=== PATIENT | female | born 1995 | race Hispanic/Latino ===

== ENCOUNTER 2019-10-17 13:47 | Emergency (ER) | payer SELFPAY ==
[~2019-10-17] VITALS: Ht 170.2 cm; Wt 115.7 kg
[2019-10-17] MEDS ORDERED: AZITHROMYCIN500 MG PO (14:47)
[2019-10-17 15:01] VITALS: BP 152/88
== END 2019-10-17 15:00 | disposition home or self-care (01) ==
LOC: FSED 13:47
DX: R05 Cough (principal); J20.9 Acute bronchitis, unspecified
CPT/HCPCS: 99282